=== PATIENT | male | born 1945 | race Caucasian/White ===

== ENCOUNTER → 2017-04-06 | Outpatient (CLI) | payer OTHER ==
--- NOTE | 2017-04-06 15:21 | MR ---
EXAMINATION TYPE: MR cervical spine wo con DATE OF EXAM: 04/06/2017 COMPARISON: CT cervical spine dated 01/23/2017 HISTORY: Neck pain x2 months, fell off roof TECHNIQUE: Multiplanar, multisequence images of the cervical spine were acquired. C2-C3: No evidence for degenerative disc disease. No disc bulge/herniation or protrusion. No Canal stenosis. Foramina are patent bilaterally. C3-C4: Posterior extension of endplate disc complex causes only minimal anterior mass effect on the t hecal sac. No significant central stenosis. Lateral extension endplate disc complex causes foraminal encroachment left greater than right. C4-C5: Posterior broad-based disc bulge causes minimal anterior mass effect on the thecal sac, latera l extension endplate disc complex causes some foraminal encroachment left greater than right. C5-C6: Posterior extension of endplate disc complex contacts the anterior cervical cord, only mild ce ntral stenosis. Lateral extension endplate disc complex causes bilateral foraminal encroachment. C6-C7: Posterior broad-based disc bulge, posterior extension of endplate disc complex contacts the an terior cervical cord, lateral extension endplate disc complex causes bilateral foraminal encroachment . On mild central stenosis. C7-T1: No evidence for degenerative disc disease. No disc bulge/herniation or protrusion. No Canal stenosis. Foramina are patent bilaterally. Cervical segments are intact. There is stable and near normal alignment. Cervical spinal cord is of normal signal. Craniovertebral junction relationships are within normal limits. There is a spinal curvature in the thoracic spine as noted on prior exam. Cervical vertebral bodies show preserved heig ht, there is multilevel spondylosis, endplate discogenic marrow signal change, there is loss of disc height and signal at the intervertebral levels especially C3-4, C4-5, C5-6 and C6-7. IMPRESSION: Degenerative disc disease, multilevel foraminal encroachment. Spinal curvature is suspected.
== END | disposition home or self-care (01) ==
LOC: RADMRIMAIN 13:54
PROVIDERS: ATTEND Nurse Practitioner Acute Care
DX: M50.30 Other cervical disc degeneration, unspecified cervical region (principal)
CPT/HCPCS: 72141

== ENCOUNTER → 2017-10-21 | Outpatient (CLI) | payer OTHER ==
--- NOTE | 2017-10-22 19:44 | MR ---
EXAMINATION TYPE: MR brain wo/w con DATE OF EXAM: 10/21/2017 COMPARISON: CT 01/23/2017 HISTORY: 72-year-old male head injury and brain tumor, headaches TECHNIQUE: Multiplanar, multisequence images of the brain and brainstem were acquired before and aft er administration of 7.5 mL IV Gadavist. Diffusion weighted imaging is performed. FINDINGS: No evidence for acute infarction, hemorrhage, mass, mass effect, midline shift, herniation, effacemen t of basal cisterns, or extra-axial fluid collection. The ventricles and sulci are age-appropriate with mild age-related supratentorial volume loss. Major intracranial flow voids are intact. T2/FLAIR weighted sequences show mild scattered burden of bright white matter change within the subco rtical and deep white matter regions of both cerebral hemispheres numbering approximately 5-10 on the right and 10-15 on the left. Midline structures demonstrate normal morphology. The craniocervical junction is normal. Post contrast images demonstrate no evidence of pathologic enhancement. Dural venous sinuses are pat ent. Trace mucosal thickening within the ethmoid air cells. Globes are intact. IMPRESSION: 1. No acute intracranial abnormality seen. 2. Mild age-related cerebral atrophy and changes of chronic small vessel ischemic disease. 3. No abnormal enhancing lesions.
== END ==
LOC: RADMRIMAIN 08:05
PROVIDERS: ATTEND Psychiatry & Neurology Neurology
DX: G44.321 Chronic post-traumatic headache, intractable (principal)
CPT/HCPCS: 82565; 84520; 70553; A9581

== ENCOUNTER 2024-05-28 09:37 | Emergency (ER) | payer OTHER ==
[2024-05-28 10:12] VITALS: TEMP 97.5
--- NOTE | 2024-05-28 10:33 | ED ---
Abdominal Pain HPI - General Chief Complaint: Abdominal Pain Stated Complaint: abd pain Time Seen by Provider: 05/28/24 10:12 Source: patient, RN notes reviewed Mode of arrival: ambulatory Limitations: no limitations - History of Present Illness Initial Comments: This is an 78-year-old male who presents to the emergency department for abdominal pain and bloating. States that it started a few days ago and seems to be getting worse. Reports associated nausea. He states that he is not wanting to eat anything as a result of this sensation. If he does drink water states that it feels like it goes down very slow. This happened to him a little over a year ago and he required esophageal dilation. He is still passing gas. Denies any chest pain or shortness of breath. MD Complaint: abdominal pain - Related Data Home Medications Medication Instructions Recorded Confirmed Apixaban [Eliquis] 5 mg PO BID 05/28/24 05/28/24 Omeprazole [PriLOSEC] 20 mg PO BID 05/28/24 05/28/24 Previous Rx's Medication Instructions Recorded Famotidine 40 mg PO DAILY #14 tablet 05/28/24 Ondansetron Odt [Zofran Odt] 4 mg PO Q8HR PRN #20 tab 05/28/24 Allergies Allergy/AdvReac Type Severity Reaction Status Date / Time codeine Allergy Unknown Verified 05/28/24 11:40 Review of Systems ROS Statement: Those systems with pertinent positive or pertinent negative responses have been documented in the HPI. ROS Other: All systems not noted in ROS Statement are negative. Past Medical History Past Medical History: Atrial Fibrillation, GERD/Reflux History of Any Multi-Drug Resistant Organisms: None Reported Past Surgical History: No Surgical Hx Reported Past Psychological History: No Psychological Hx Reported Smoking Status: Former smoker Past Alcohol Use History: Occasional Past Drug Use History: None Reported General Exam Limitations: no limitations General appearance: alert, in no apparent distress Head exam: Present: atraumatic, normocephalic, normal inspection Respiratory exam: Present: normal lung sounds bilaterally. Absent: respiratory distress, wheezes, rales, rhonchi, stridor Cardiovascular Exam: Present: regular rate, irregular rhythm GI/Abdominal exam: Present: soft, tenderness (Diffuse), normal bowel sounds. Absent: distended Neurological exam: Present: alert, oriented X3, CN II-XII intact Psychiatric exam: Present: normal affect, normal mood Skin exam: Present: warm, dry, intact, normal color. Absent: rash Course Vital Signs 05/28/24 05/28/24 05/28/24 10:10 11:19 13:29 Temperature 97.5 F L Pulse Rate 87 86 78 Respiratory 16 18 18 Rate Blood Pressure 138/86 119/82 124/99 O2 Sat by Pulse 98 95 99 Oximetry Medical Decision Making - Medical Decision Making This is a 78-year-old male who presents to the emergency department for abdominal pain and bloating. Was pt. sent in by a medical professional or institution? @ -No Did you speak to anyone other than the patient for history? @ -No Did you review nursing and triage notes? @ -Yes, and I agree, it is accurate with regards to the patient's symptoms. Were old charts reviewed? @ -No Differential Diagnosis? @ -Differential Abdominal Pain Men: Appendicitis, cholecystitis, diverticulosis, ischemic bowel, pancreatitis, hepatitis, UTI, gastroenteritis, AAA, incarcerated hernia, bowel obstruction, constipation, inflammatory bowel, hepatitis, peptic ulcer disease, splenic infarction, perforated viscus, testicular torsion, this is not meant to be an all-inclusive list EKG interpreted by me (3pts min.)? @ -EKG interpreted by me demonstrating the following: Atrial fibrillation. Ventricular rate 84 bpm, QRS duration 109 ms, QTc 415 ms. X-rays interpreted by me (1pt min.)? @ -Not obtained CT interpreted by me (1pt min.)? @ -CT scan of the abdomen and pelvis obtained. My interpretation identifies wall thickening in the terminal ileum. U/S interpreted by me (1pt. min.)? @ -Not obtained What testing was considered but not performed? (CT, X-rays, U/S, labs)? Why? @ -None What meds were considered but not given? Why? @ -None Did you discuss the management of the patient with other professionals? @ -No Did you reconcile home meds? @ -No Was smoking cessation discussed for >3mins.? @ -No Was critical care preformed (if so, how long)? @ -No Were there social determinants of health that impacted care today? How? (Homelessness, low income, unemployed, alcoholism, drug addiction, transportation, low edu. Level, literacy, decrease access to med. care, longterm, rehab)? @ -No Was there de-escalation of care discussed even if they declined? (Discuss DNR or withdrawal of care, Hospice)? @ -No What co-morbidities impacted this encounter? (DM, HTN, Smoking, COPD, CAD, Cancer, CVA, Hep., AIDS, mental health diagnosis, sleep apnea, morbid obesity)? @ -GERD Was patient admitted / discharged? @ -Discharged. Lab work unremarkable. CT scan of the abdomen and pelvis reveals acute enteritis involving the terminal ileum and duodenal sweep. No acute process was otherwise identified. He was tolerating oral intake without d ifficulty. 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 I did advise bowel rest and hydration regarding the enteritis. Zofran and famotidine prescribed. Patient discharged home in stable condition. Case discussed with ED attending Dr. Dozier. Return precautions reviewed in depth, the patient is instructed to return to the emergency department with any new, worsening, or concerning symptoms. Patient verbalized understanding. Undiagnosed new problem with uncertain prognosis? @ -None Drug Therapy requiring intensive monitoring for toxicity (Heparin, Nitro, Insulin, Cardizem)? @ -None Were any procedures done? @ -None Diagnosis/symptom? @ -Enteritis Acute, or Chronic, or Acute on Chronic? @ -Acute Uncomplicated (without systemic symptoms) or Complicated (systemic symptoms)? @ -Uncomplicated Side effects of treatment? @ -None Exacerbation, Progression, or Severe Exacerbation] @ -Not applicable Poses a threat to life or bodily function? @ -No - Lab Data Result diagrams: 05/28/24 10:29 05/28/24 10:29 Lab Results 05/28/24 05/28/24 05/28/24 Range/Units 10:29 10: 10:29 WBC 4.64 (4.50-10.00) 10*3/uL RBC 4.89 (4.40-5.60) 10*6/uL Hgb 15.4 (13.0-17.0) g/dL Hct 45.5 (39.6-50.0) % MCV 93.0 (80.0-97.0) fL MCH 31.5 (27.0-32.0) pg MCHC 33.8 (32.0-37.0) g/dL Plt Count 184 (140-440) 10*3/uL MPV 11.8 (9.5-12.2) fL Immature Gran % (Auto) 0.2 % Neutrophils % 47.9 % Lymphocytes % 40.5 % Monocytes % 8.2 % Eosinophils % 2.8 % Basophils % 0.4 % Immature Gran # 0.01 (0.00-0.04) 10*3/uL Neutrophils # 2.22 (1.80-7.70) 10*3/uL Lymphocytes # 1.88 (0.90-5.00) 10*3/uL Monocytes # 0.38 (0.20-1.00) 10*3/uL Eosinophils # 0.13 (0.04-0.35) 10*3/uL Basophils # 0.02 (0.00-0.10) 10*3/uL Sodium 137 (137-145) mmol/L Potassium 4.3 (3.5-5.1) mmol/L Chloride 104 (98-107) mmol/L Carbon Dioxide 25 (22-30) mmol/L Anion Gap 8 mmol/L BUN 17 (9-20) mg/dL Creatinine 0.88 (0.66-1.25) mg/dL Est GFR (CKD-EPI)AfAm >90 (>60 ml/min/1.73 sqM) Est GFR (CKD-EPI)NonAf 81 (>60 ml/min/1.73 sqM) Glucose 93 (74-99) mg/dL Plasma Lactic Acid Sergio 1.0 (0.7-2.0) mmol/L Calcium 9.2 (8.4-10.2) mg/dL Magnesium 1.9 (1.6-2.3) mg/dL Total Bilirubin 1.1 (0.2-1.3) mg/dL AST 26 (17-59) U/L ALT 18 (4-49) U/L Alkaline Phosphatase 53 (38-126) U/L Total Protein 6.9 (6.3-8.2) g/dL Albumin 4.3 (3.5-5.0) g/dL Lipase 84 (23-300) U/L - Radiology Data Radiology results: report reviewed, image reviewed Disposition Clinical Impression: Enteritis Disposition: HOME SELF-CARE Instructions (If sedation given, give patient instructions): Enteritis (ED) Additional Instructions: Return to the emergency department with any new, worsening, or concerning symptoms. Take the famotidine daily for the next 2 weeks. You can stop this sooner if your symptoms resolve. Take the Zofran up to every 8 hours as needed for nausea and vomiting. Make sure you remain well-hydrated and eat small bland meals for the next several days. Follow up with your primary care provider in 1-2 days. Prescriptions: Famotidine 40 mg PO DAILY #14 tablet Ondansetron Odt [Zofran Odt] 4 mg PO Q8HR PRN #20 tab PRN Reason: Nausea And Vomiting Is patient prescribed a controlled substance at d/c from ED?: No Referrals: Butch Leon MD [Primary Care Provider] - 1-2 days Time of Disposition: 13:08
[2024-05-28] MEDS: PANTOPRAZOLE 40 MG/10 ML VIAL IVP STA (10:35)
[2024-05-28] MEDS: METOCLOPRAMIDE 5 MG/ML 2 ML VIAL IVP STA (10:36)
[2024-05-28] MEDS: FAMOTIDINE 20 MG/2 ML VIAL IV STA (10:37)
[2024-05-28 10:46] LABS: Basophils # (A) 0.02 10*3/uL (0.00-0.10); Basophils % (A) 0.4 %; Eosinophils # (A) 0.13 10*3/uL (0.04-0.35); Eosinophils % (A) 2.8 %; HCT 45.5 % (39.6-50.0); HGB 15.4 g/dL (13.0-17.0); Lymphocytes # (A) 1.88 10*3/uL (0.90-5.00); Lymphocytes % (A) 40.5 %; MCH 31.5 pg (27.0-32.0); MCHC 33.8 g/dL (32.0-37.0); Mean Platelet Volume 11.8 fL (9.5-12.2); Monocytes # (A) 0.38 10*3/uL (0.20-1.00); Monocytes % (A) 8.2 %; Neutrophils # (A) 2.22 10*3/uL (1.80-7.70); Neutrophils % (A) 47.9 %; Platelet Count 184 10*3/uL (140-440); RBC 4.89 10*6/uL (4.40-5.60); RDW 12.6 % (11.5-14.5); WBC 4.64 10*3/uL (4.50-10.00)
[2024-05-28 10:55] LABS: ALT 18 U/L (4-49); AST 26 U/L (17-59); African American GFR (CKD) >90 (>60 ml/min/1.73 sqM); Albumin 4.3 g/dL (3.5-5.0); Alkaline Phosphatase 53 U/L (38-126); Anion Gap 8 mmol/L; Blood Urea Nitrogen 17 mg/dL (9-20); Calcium 9.2 mg/dL (8.4-10.2); Carbon Dioxide 25 mmol/L (22-30); Chloride 104 mmol/L (98-107); Glucose 93 mg/dL (74-99); Lipase 84 U/L (23-300); Magnesium 1.9 mg/dL (1.6-2.3); Non-African American GFR(CKD) 81 (>60 ml/min/1.73 sqM); Potassium 4.3 mmol/L (3.5-5.1); Sodium 137 mmol/L (137-145); Total Bilirubin 1.1 mg/dL (0.2-1.3); Total Protein 6.9 g/dL (6.3-8.2)
[2024-05-28 11:19] VITALS: RESP 18
--- NOTE | 2024-05-28 12:31 | CT ---
EXAMINATION TYPE: CT abdomen pelvis w con DATE OF EXAM: 05/28/2024 COMPARISON: NONE CLINICAL INDICATION: Male, 78 years old with history of Abdominal pain and bloating, Abdominal pain a nd bloating, TECHNIQUE: CT scan of the abdomen and pelvis is performed with IV Contrast, patient injected with 100 ml mL of I sovue 300., (none if empty) Oral contrast used: without Oral Contrast (none if empty) CT DLP: 920.7 mGycm, Automated exposure control for dose reduction was used. FINDINGS: LUNG BASES: No significant abnormality is appreciated. LIVER/GB: Liver is heterogeneously hypodense consistent with diffuse fatty infiltrative hepatocellula r disease. PANCREAS: No significant abnormality is seen. SPLEEN: No significant abnormality is seen. ADRENALS: No significant abnormality is seen. KIDNEYS: Symmetric cortical medullary uptake and excretion without hydronephrosis seen bilaterally. A few simple appearing thin-walled cyst in the left kidney are present which do not require follow-up. BOWEL: No abnormal small or large bowel dilatation. Mild to moderate wall thickening in the termina l ileum. Distal colonic diverticula without CT evidence for acute diverticulitis. Stomach poorly dist ended and thus suboptimally evaluated. Suboptimal study without enteric contrast. Moderate wall thick ening in the duodenal sweep. PROSTATE/SEMINAL VESICLES: Prostate gland upper limits of normal in size. LYMPH NODES: No greater than 1cm abdominal or pelvic lymph nodes are appreciated. OSSEOUS STRUCTURES: Disc calcification with [id number] disc space narrowing at the lumbosacra l junction. OTHER: Moderate peripheral plaque of the aorta extends into branch vessels. IMPRESSION: No ascites. Possible acute enteritis involving the terminal ileum and duodenal sweep. Di fferential includes infectious and/or inflammatory etiologies. Correlate clinically. Otherwise no erika picious findings present to account for patient's symptoms. [facility], , 05/28/2024 12:29 PM
[2024-05-28 13:31] VITALS: BP 124/99; PULSE 78
== END 2024-05-28 13:30 | disposition home or self-care (01) ==
LOC: EC 09:37
DX: K52.9 Noninfective gastroenteritis and colitis, unspecified (principal); K21.9 Gastro-esophageal reflux disease without esophagitis; Z87.891 Personal history of nicotine dependence; Z88.5 Allergy status to narcotic agent
CPT/HCPCS: 36415; 93005; 80053; 83605; 83690; 83735; 85025; 74177; 99284; 96374; 96375 ×2; J2765; J3490; Q9967; J2470

== ENCOUNTER 2024-06-10 06:01 | Day surgery (SDC) | payer MEDICARE, OTHER ==
[2024-06-10] MEDS: IV FLUID CONTINUATION 500 ML IV ONE (06:14)
[2024-06-10 06:39] VITALS: TEMP 98
[2024-06-10] MEDS: SODIUM CHLORIDE 0.9% 500 ML 500 ML IV SCH (06:48)
[2024-06-10] MEDS ORDERED: PROPOFOL 10 MG/ML 20 ML VIAL IV ONE (07:02)
[2024-06-10] MEDS: BENZOCAINE SPRAY 1 EACH MUCOUS MEM STA (07:27)
--- NOTE | 2024-06-10 07:36 | P.TEE ---
Description of Procedure(s): Procedure performed: Transesophageal Echocardiogram with color flow doppler, pulsed wave doppler and continuous wave doppler, synchronized cardioversion Moderate conscious sedation: Moderate conscious sedation was supplied by anesthesia, see separate report. Complications: none Indications: Atrial fibrillation PROCEDURE: After the risks, benefits and alternatives of the above mentioned procedure was explained in detail with the patient, informed consent was obtained. Patient was brought to the lab in a fasting state. Patient was given sedation by anesthesia, see separate report. The throat was sprayed with Hurricane to anesthetize the throat. A lubricated Omni probe was then introduced into the esophagus and stomach and multiple views were obtained. 2D echo with color flow doppler, pulsed wave doppler and continuous wave doppler was utilized. Agitated saline bubbles were injected to assess for any intra-atrial shunt. The probe was then removed. There was no thrombus noted and therefore patient underwent synchronized cardioversion x 1 with 200J with resultant sinus rhythm. Patient tolerated the procedure well. Patient was transferred to the post procedure area in stable and satisfactory condition. FINDINGS: 1. The aortic valve is tricuspid with normal function with trace aortic regurgitation. 2. The mitral valve appears be normal with mild mitral regurgitation. 3. Tricuspid valve appears to be normal. 4. The interatrial septum is intact. No evidence of PFO. 5. Left atrial appendage is free of clot. 6. Left ventricular ejection fraction 50 to 55%.
[2024-06-10 08:25] VITALS: BP 127/84; PULSE 59; RESP 18
== END 2024-06-10 08:40 | disposition home or self-care (01) ==
LOC: OR 06:01
PROVIDERS: ATTEND Internal Medicine
DX: I48.19 Other persistent atrial fibrillation (principal); R42 Dizziness and giddiness; I42.9 Cardiomyopathy, unspecified; Z79.01 Long term (current) use of anticoagulants
CPT/HCPCS: 93312; 93320; 93325; 92960; J2704